=== PATIENT | female | born 1935 | race Caucasian/White ===

== ENCOUNTER 2021-04-09 16:58 | Inpatient (IN) ==
[2021-04-09] MEDS ORDERED: Tdap (Boostrix) Vaccine 0.5 ML SYRINGE IM ONE (18:07)
[2021-04-09] MEDS ORDERED: Isovue-370 500 ML BOTTLE IVP ONE (18:07)
[2021-04-09 19:57] LABS: Basophils % 0.1 %; Hemoglobin 9.7 g/dL (11.5-15.4); Immature Granulocytes % 0.4 % (0-4); Lymphocytes # 0.8 K/mcL (0.6-4.6); Lymphocytes % 5.9 %; Mean Corpuscular HGB Conc 29.4 g/dL (31.6-35.5); Mean Corpuscular Hemoglobin 24.1 pg (28.0-33.3); Mean Corpuscular Volume 81.9 fL (83.0-100.0); Mean Platelet Volume 11.4 fL (9.4-12.4); Monocytes % 7.5 %; Neutrophils # 11.7 K/mcL (1.6-8.9); Platelet Count 391 K/mcL (140-400); Red Blood Count 4.03 M/mcL (3.82-4.97); Red Cell Distribution Width 19.5 % (11.5-14.5); Segmented Neutrophils % 86.1 %; White Blood Count 13.5 K/mcL (4.3-11.1)
[2021-04-09 20:15] LABS: Albumin 4.3 g/dL (3.5-5.7); Albumin/Globulin Ratio 1.5 (1.1-2.2); Bilirubin,Total 0.5 mg/dL (0.3-1.0); Calcium 9.3 mg/dL (8.6-10.3); Globulin 2.8 g/dL (2.4-3.5); Potassium 6.1 mEq/L (3.5-5.1); Total Protein 7.1 g/dL (6.4-8.9); Troponin I 0.09 ng/mL (< 0.04)
[2021-04-09] MEDS ORDERED: Albuterol 2.5 MG/3 ML NEBULIZER IH ONE (20:22)
[2021-04-09] MEDS ORDERED: SODIUM ZIRCONIUM CYCLOSILICATE 5 GM POWD.PACK PO ONE (20:23)
[2021-04-09 20:34] LABS: Bacteria,Urine Moderate per hpf (None-Few); Bilirubin,Urine Negative (Negative); Blood,Urine Negative (Negative); Clarity,Urine Clear (Clear); Color,Urine Light-Yellow (Yellow); Glucose,Urine (UA) Normal (Normal); Hyaline Casts,Urine Few per lpf (None Seen); Ketones,Urine 10 mg/dL (Negative); Leukocyte Esterase,Urine Trace (Negative); Mucus,Urine Few per lpf (None-Few); Nitrite,Urine Negative (Negative); Protein,Urine Negative (Neg-Trace); RBC,Urine 0-3 per hpf (0-3); Specific Gravity,Urine 1.013 (1.010-1.025); Urobilinogen,Urine Normal (Normal); WBC,Urine 0-3 per hpf (0-3)
[2021-04-09] MEDS: Calcium Gluconate 1gm/50mL 1 GM/50 ML BAG IVPB SCH ×2 (20:47→22:25)
[2021-04-09 20:48] LABS: Prothrombin Time 11.3 Seconds (9.4-12.1)
[2021-04-09 20:51] LABS: Activated Partial Thrombo Time 21.4 Seconds (26.0-36.0)
[2021-04-09] MEDS: Miconazole 2% ointment 141 APPL/141 GM TUBE TP SCH (22:25)
[2021-04-10] MEDS ORDERED: Ondansetron 4 MG/2 ML VIAL IVP PRN (00:38)
[2021-04-10] MEDS ORDERED: Naloxone 0.4 MG/ML INJ IVP PRN (00:38)
[2021-04-10] MEDS ORDERED: Acetaminophen 325 MG TABLET PO PRN (00:38)
[2021-04-10 04:25] LABS: Calcium 9.6 mg/dL (8.6-10.3); Potassium 5.6 mEq/L (3.5-5.1)
[2021-04-10] MEDS ORDERED: *HR* Heparin 5,000 UNIT/ML VIAL IVP PRN ×2 (05:25)
[2021-04-10] MEDS ORDERED: *HR* Heparin 5,000 UNIT/ML VIAL IVP ONE (05:25)
[2021-04-10] MEDS ORDERED: Perflutren Lipid Microsphere 1.3 ML in 0.9 % Sodium Chloride 8.7 ML IVP PRN (05:26)
[2021-04-10] MEDS ORDERED: Heparin 25,000 UNIT/250 ML 25,000 UNIT/250 ML IV.SOLN IVC SCH (05:30)
[2021-04-10] MEDS ORDERED: *HR* Dextrose 50 % in Water (Syg) 50 ML SYRINGE IVP PRN (05:31)
[2021-04-10] MEDS ORDERED: D5% in Water 1,000 ML IVC PRN (05:31)
[2021-04-10] MEDS ORDERED: Dextrose Gel 15 GM/37.5 ML TUBE PO PRN ×2 (05:31)
[2021-04-10] MEDS: Insulin LISPRO 300 UNITS/3 ML VIAL SUBQ SCH ×2 (12:24→17:49)
[2021-04-10 12:29] LABS: Basophils % 0.4 %; Eosinophils % 0.4 %; Hemoglobin 8.3 g/dL (11.5-15.4); Immature Granulocytes % 0.4 % (0-4); Lymphocytes % 11.9 %; Mean Corpuscular HGB Conc 29.6 g/dL (31.6-35.5); Mean Corpuscular Volume 80.9 fL (83.0-100.0); Mean Platelet Volume 12.4 fL (9.4-12.4); Monocytes # 0.9 K/mcL (0.0-1.3); Monocytes % 11.1 %; Neutrophils # 6.2 K/mcL (1.6-8.9); Platelet Count 378 K/mcL (140-400); Red Blood Count 3.46 M/mcL (3.82-4.97); Red Cell Distribution Width 19.4 % (11.5-14.5); Segmented Neutrophils % 75.8 %; White Blood Count 8.1 K/mcL (4.3-11.1)
[2021-04-10 12:48] LABS: Calcium 9.3 mg/dL (8.6-10.3); Magnesium 1.3 mg/dL (1.6-2.6); Phosphorous 3.4 mg/dL (2.7-4.5)
[2021-04-10 12:55] LABS: INR 1.1; Prothrombin Time 11.7 Seconds (9.4-12.1)
[2021-04-10 12:56] LABS: Heparin anti-factor XA UFH < 0.04 IU/mL (0.30-0.70)
[2021-04-10 12:57] LABS: Troponin I 0.43 ng/mL (< 0.04)
[2021-04-10] MEDS: Aspirin 81 MG TAB.CHEW PO SCH (17:38)
[2021-04-10 19:07] LABS: Hematocrit 26.6 % (35.3-44.9)
[2021-04-10] MEDS: Melatonin 3 MG TABLET PO PRN (20:38)
[2021-04-10] MEDS: Miconazole 2% ointment 141 APPL/141 GM TUBE TP SCH (20:39)
[2021-04-11] MEDS: Insulin LISPRO 300 UNITS/3 ML VIAL SUBQ SCH ×5 (00:02→23:16)
[2021-04-11] MEDS: Aspirin 81 MG TAB.CHEW PO SCH (09:29)
[2021-04-11 09:31] LABS: Hematocrit 26.9 % (35.3-44.9); Hemoglobin 7.8 g/dL (11.5-15.4); Mean Corpuscular Hemoglobin 23.5 pg (28.0-33.3); Mean Platelet Volume 11.6 fL (9.4-12.4); Platelet Count 339 K/mcL (140-400); Red Blood Count 3.32 M/mcL (3.82-4.97); Red Cell Distribution Width 19.3 % (11.5-14.5); White Blood Count 7.7 K/mcL (4.3-11.1)
[2021-04-11 09:58] LABS: Calcium 9.1 mg/dL (8.6-10.3); Magnesium 1.6 mg/dL (1.6-2.6); Potassium 3.9 mEq/L (3.5-5.1); Troponin I 0.38 ng/mL (< 0.04)
[2021-04-11 15:32] LABS: Hematocrit 25.4 % (35.3-44.9); Hemoglobin 7.4 g/dL (11.5-15.4)
[2021-04-11] MEDS: *HR* Heparin 5,000 UNIT/ML VIAL SQ SCH (17:18)
[2021-04-11] MEDS: Miconazole 2% ointment 141 APPL/141 GM TUBE TP SCH (20:25)
[2021-04-11] MEDS: Melatonin 3 MG TABLET PO PRN (20:25)
[2021-04-11] MEDS: Metoprolol XL (24 HR) Succ 50 MG TAB.ER.24H PO SCH (20:25)
[2021-04-12 03:44] LABS: Hematocrit 24.5 % (35.3-44.9); Hemoglobin 7.4 g/dL (11.5-15.4); Mean Corpuscular HGB Conc 30.2 g/dL (31.6-35.5); Mean Corpuscular Hemoglobin 24.3 pg (28.0-33.3); Mean Corpuscular Volume 80.6 fL (83.0-100.0); Mean Platelet Volume 11.6 fL (9.4-12.4); Platelet Count 314 K/mcL (140-400); Red Blood Count 3.04 M/mcL (3.82-4.97); Red Cell Distribution Width 19.3 % (11.5-14.5); White Blood Count 6.5 K/mcL (4.3-11.1)
[2021-04-12 03:55] LABS: Calcium 8.7 mg/dL (8.6-10.3); Potassium 3.9 mEq/L (3.5-5.1)
[2021-04-12] MEDS: *HR* Heparin 5,000 UNIT/ML VIAL SQ SCH ×2 (05:37→17:32)
[2021-04-12] MEDS: Insulin LISPRO 300 UNITS/3 ML VIAL SUBQ SCH ×4 (05:37→21:07)
[2021-04-12] MEDS: Furosemide Oral Soln 40 MG/4 ML UDC PO SCH (08:07)
[2021-04-12] MEDS: Folic Acid 1 MG TABLET PO SCH (08:07)
[2021-04-12] MEDS: Aspirin 81 MG TAB.CHEW PO SCH (08:07)
[2021-04-12] MEDS: Cyanocobalamin (B-12) 1,000 MCG TABLET PO SCH (08:08)
[2021-04-12] MEDS: Metoprolol XL (24 HR) Succ 50 MG TAB.ER.24H PO SCH ×2 (08:08→21:08)
[2021-04-12 11:16] LABS: Hematocrit 26.7 % (35.3-44.9); Hemoglobin 7.8 g/dL (11.5-15.4)
[2021-04-12 19:30] LABS: Hematocrit 24.9 % (35.3-44.9); Hemoglobin 7.5 g/dL (11.5-15.4)
[2021-04-12] MEDS: Miconazole 2% ointment 141 APPL/141 GM TUBE TP SCH (21:12)
[2021-04-13 02:13] LABS: Hematocrit 24.1 % (35.3-44.9); Hemoglobin 7.1 g/dL (11.5-15.4); Mean Corpuscular HGB Conc 29.5 g/dL (31.6-35.5); Mean Corpuscular Hemoglobin 23.7 pg (28.0-33.3); Mean Corpuscular Volume 80.3 fL (83.0-100.0); Mean Platelet Volume 11.6 fL (9.4-12.4); Platelet Count 317 K/mcL (140-400); Red Cell Distribution Width 19.4 % (11.5-14.5); White Blood Count 7.5 K/mcL (4.3-11.1)
[2021-04-13 02:31] LABS: Calcium 8.5 mg/dL (8.6-10.3); Potassium 3.4 mEq/L (3.5-5.1)
[2021-04-13] MEDS: *HR* Heparin 5,000 UNIT/ML VIAL SQ SCH (05:30)
[2021-04-13] MEDS: Insulin LISPRO 300 UNITS/3 ML VIAL SUBQ SCH ×4 (07:40→20:49)
[2021-04-13] MEDS: Aspirin 81 MG TAB.CHEW PO SCH (08:16)
[2021-04-13] MEDS: Metoprolol XL (24 HR) Succ 50 MG TAB.ER.24H PO SCH ×2 (08:16→20:57)
[2021-04-13] MEDS: Cyanocobalamin (B-12) 1,000 MCG TABLET PO SCH (08:16)
[2021-04-13] MEDS: Furosemide Oral Soln 40 MG/4 ML UDC PO SCH (08:16)
[2021-04-13] MEDS: Folic Acid 1 MG TABLET PO SCH (08:16)
[2021-04-13] MEDS ORDERED: Furosemide 20 MG/2 ML VIAL IVP PRN (14:02)
[2021-04-13 16:47] LABS: Hematocrit 28.6 % (35.3-44.9); Hemoglobin 8.4 g/dL (11.5-15.4); Immature Reticulocyte % 41.3 % (11.0-38.0); Mean Corpuscular HGB Conc 29.4 g/dL (31.6-35.5); Mean Corpuscular Hemoglobin 24.1 pg (28.0-33.3); Mean Corpuscular Volume 81.9 fL (83.0-100.0); Mean Platelet Volume 11.6 fL (9.4-12.4); Platelet Count 387 K/mcL (140-400); Red Blood Count 3.49 M/mcL (3.82-4.97); Red Cell Distribution Width 19.9 % (11.5-14.5); Retculocyte # 0.07 M/mcL (0.05-0.10); Reticulocyte % 2.1 % (1.6-2.8); White Blood Count 7.2 K/mcL (4.3-11.1)
[2021-04-13 17:05] LABS: Iron 24 mcg/dL (50-170); Lactate Dehydrogenase 174 Units/L (140-271)
[2021-04-13 17:22] LABS: Ferritin 18 ng/mL (10-120)
[2021-04-13] MEDS: Pantoprazole 40 MG VIAL IVP SCH (17:33)
[2021-04-13] MEDS: Miconazole 2% ointment 141 APPL/141 GM TUBE TP SCH (20:58)
[2021-04-14 01:13] LABS: Hematocrit 25.3 % (35.3-44.9); Hemoglobin 7.5 g/dL (11.5-15.4); Mean Corpuscular HGB Conc 29.6 g/dL (31.6-35.5); Mean Corpuscular Volume 81.1 fL (83.0-100.0); Mean Platelet Volume 11.7 fL (9.4-12.4); Platelet Count 293 K/mcL (140-400); Red Blood Count 3.12 M/mcL (3.82-4.97); Red Cell Distribution Width 19.6 % (11.5-14.5); White Blood Count 8.2 K/mcL (4.3-11.1)
[2021-04-14 01:37] LABS: Calcium 8.6 mg/dL (8.6-10.3); Potassium 4.2 mEq/L (3.5-5.1)
[2021-04-14] MEDS: Pantoprazole 40 MG VIAL IVP SCH ×2 (05:28→17:34)
[2021-04-14] MEDS: Insulin LISPRO 300 UNITS/3 ML VIAL SUBQ SCH ×4 (08:01→21:35)
[2021-04-14] MEDS: Cyanocobalamin (B-12) 1,000 MCG TABLET PO SCH (08:12)
[2021-04-14] MEDS: Folic Acid 1 MG TABLET PO SCH (08:12)
[2021-04-14] MEDS: Aspirin 81 MG TAB.CHEW PO SCH (08:13)
[2021-04-14] MEDS: Metoprolol XL (24 HR) Succ 50 MG TAB.ER.24H PO SCH ×2 (08:13→21:19)
[2021-04-14] MEDS ORDERED: 0.9 % Sodium Chloride 250 ML ONE (10:24)
[2021-04-14 15:56] LABS: Sodium, Urine 72.7 mEq/L
[2021-04-14 17:12] LABS: Hepatitis B Surface Antigen Nonreactive (Nonreactive)
[2021-04-14 17:40] LABS: Hepatitis B Core IgM Nonreactive (Nonreactive)
[2021-04-14 17:41] LABS: Hepatitis C Virus Antibody Nonreactive (Nonreactive)
[2021-04-14 17:42] LABS: Hepatitis A Antibody IgM Nonreactive (Nonreactive)
[2021-04-14] MEDS: Miconazole 2% ointment 141 APPL/141 GM TUBE TP SCH (21:19)
[2021-04-15] MEDS ORDERED: 0.9 % Sodium Chloride 250 ML ONE (00:50)
[2021-04-15 04:39] LABS: Hematocrit 27.4 % (35.3-44.9); Hemoglobin 8.4 g/dL (11.5-15.4); Mean Corpuscular HGB Conc 30.7 g/dL (31.6-35.5); Mean Corpuscular Hemoglobin 24.3 pg (28.0-33.3); Mean Corpuscular Volume 79.4 fL (83.0-100.0); Mean Platelet Volume 11.6 fL (9.4-12.4); Platelet Count 293 K/mcL (140-400); Red Blood Count 3.45 M/mcL (3.82-4.97); Red Cell Distribution Width 18.6 % (11.5-14.5); White Blood Count 8.7 K/mcL (4.3-11.1)
[2021-04-15 04:46] LABS: Calcium 8.7 mg/dL (8.6-10.3); Potassium 3.8 mEq/L (3.5-5.1)
[2021-04-15] MEDS: Pantoprazole 40 MG VIAL IVP SCH ×2 (05:34→17:41)
[2021-04-15] MEDS: Insulin LISPRO 300 UNITS/3 ML VIAL SUBQ SCH ×3 (08:19→17:40)
[2021-04-15] MEDS: Aspirin 81 MG TAB.CHEW PO SCH (08:20)
[2021-04-15] MEDS: Folic Acid 1 MG TABLET PO SCH (08:20)
[2021-04-15] MEDS: Metoprolol XL (24 HR) Succ 50 MG TAB.ER.24H PO SCH ×2 (08:20→19:52)
[2021-04-15] MEDS: Cyanocobalamin (B-12) 1,000 MCG TABLET PO SCH (08:20)
[2021-04-15] MEDS ORDERED: Furosemide 40 MG TABLET PO SCH (09:00)
[2021-04-15 09:42] LABS: Hematocrit 32.7 % (35.3-44.9); Mean Corpuscular HGB Conc 31.5 g/dL (31.6-35.5); Mean Corpuscular Hemoglobin 24.9 pg (28.0-33.3); Mean Corpuscular Volume 79.2 fL (83.0-100.0); Mean Platelet Volume 11.5 fL (9.4-12.4); Platelet Count 297 K/mcL (140-400); Red Blood Count 4.13 M/mcL (3.82-4.97); Red Cell Distribution Width 18.1 % (11.5-14.5); White Blood Count 9.1 K/mcL (4.3-11.1)
[2021-04-15 09:48] LABS: Hemoglobin 10.3 g/dL (11.5-15.4)
[2021-04-15] MEDS ORDERED: *HR* Metoprolol 5 MG/5 ML VIAL IVP PRN (15:42)
[2021-04-15] MEDS ORDERED: *HR* Digoxin 0.5 MG/2 ML AMPUL IVP STA (17:53)
[2021-04-15 18:05] LABS: Hematocrit 35.2 % (35.3-44.9); Hemoglobin 10.6 g/dL (11.5-15.4); Mean Corpuscular HGB Conc 30.1 g/dL (31.6-35.5); Mean Corpuscular Hemoglobin 24.8 pg (28.0-33.3); Mean Corpuscular Volume 82.4 fL (83.0-100.0); Mean Platelet Volume 11.5 fL (9.4-12.4); Platelet Count 333 K/mcL (140-400); Red Blood Count 4.27 M/mcL (3.82-4.97); Red Cell Distribution Width 18.6 % (11.5-14.5); White Blood Count 10.3 K/mcL (4.3-11.1)
[2021-04-15 18:20] LABS: Magnesium 1.3 mg/dL (1.6-2.6)
[2021-04-15] MEDS: Miconazole 2% ointment 141 APPL/141 GM TUBE TP SCH (19:52)
[2021-04-15 23:24] LABS: Thyroid Stimulating Hormone 4.3 mcIU/mL (0.340-5.600)
[2021-04-16 04:14] LABS: Hematocrit 31.6 % (35.3-44.9); Mean Corpuscular HGB Conc 31.6 g/dL (31.6-35.5); Mean Corpuscular Volume 82.1 fL (83.0-100.0); Mean Platelet Volume 11.5 fL (9.4-12.4); Platelet Count 301 K/mcL (140-400); Red Blood Count 3.85 M/mcL (3.82-4.97); White Blood Count 8.6 K/mcL (4.3-11.1)
[2021-04-16 04:27] LABS: Calcium 8.9 mg/dL (8.6-10.3); Digoxin 1.4 ng/mL (0.8-2.0); Potassium 3.6 mEq/L (3.5-5.1)
[2021-04-16] MEDS: Pantoprazole 40 MG VIAL IVP SCH ×2 (05:50→19:19)
[2021-04-16] MEDS ORDERED: *HR* Digoxin 0.5 MG/2 ML AMPUL IVP STA (07:45)
[2021-04-16] MEDS ORDERED: *HR* Dextrose 50 % in Water (Syg) 50 ML SYRINGE IVP PRN (07:45)
[2021-04-16] MEDS ORDERED: Dextrose Gel 15 GM/37.5 ML TUBE PO PRN ×2 (07:45)
[2021-04-16] MEDS ORDERED: Furosemide 20 MG/2 ML VIAL IVP PRN (07:45)
[2021-04-16] MEDS ORDERED: *HR* Metoprolol 5 MG/5 ML VIAL IVP PRN (07:45)
[2021-04-16] MEDS ORDERED: *HR* Digoxin 0.5 MG/2 ML AMPUL IVP SCH (07:45)
[2021-04-16] MEDS ORDERED: Melatonin 3 MG TABLET PO PRN (07:45)
[2021-04-16] MEDS ORDERED: D5% in Water 1,000 ML IVC PRN (07:45)
[2021-04-16] MEDS ORDERED: Ondansetron 4 MG/2 ML VIAL IVP PRN (07:45)
[2021-04-16] MEDS ORDERED: Naloxone 0.4 MG/ML INJ IVP PRN (07:45)
[2021-04-16] MEDS: Aspirin 81 MG TAB.CHEW PO SCH (08:42)
[2021-04-16] MEDS: Folic Acid 1 MG TABLET PO SCH (08:42)
[2021-04-16] MEDS: Cyanocobalamin (B-12) 1,000 MCG TABLET PO SCH (08:44)
[2021-04-16] MEDS: Metoprolol XL (24 HR) Succ 50 MG TAB.ER.24H PO SCH ×2 (08:46→22:08)
[2021-04-16] MEDS ORDERED: Furosemide 40 MG TABLET PO SCH (09:00)
[2021-04-16] MEDS ORDERED: Sennosides/Docusate Sodium TABLET PO PRN (11:50)
[2021-04-16] MEDS: Insulin LISPRO 300 UNITS/3 ML VIAL SUBQ SCH ×2 (13:00→19:19)
[2021-04-16 13:12] LABS: Hematocrit 35.8 % (35.3-44.9); Hemoglobin 10.9 g/dL (11.5-15.4); Mean Corpuscular HGB Conc 30.4 g/dL (31.6-35.5); Mean Corpuscular Hemoglobin 25.3 pg (28.0-33.3); Mean Corpuscular Volume 83.1 fL (83.0-100.0); Mean Platelet Volume 11.4 fL (9.4-12.4); Platelet Count 312 K/mcL (140-400); Red Blood Count 4.31 M/mcL (3.82-4.97); Red Cell Distribution Width 19.2 % (11.5-14.5); White Blood Count 9.6 K/mcL (4.3-11.1)
[2021-04-16 13:14] LABS: Heparin anti-factor XA UFH < 0.04 IU/mL (0.30-0.70)
[2021-04-16 13:15] LABS: Prothrombin Time 11.1 Seconds (9.4-12.1)
[2021-04-16] MEDS: Heparin 25,000 UNIT/250 ML 25,000 UNIT/250 ML IV.SOLN IVC SCH (15:20)
[2021-04-16] MEDS: Miconazole 2% ointment 141 APPL/141 GM TUBE TP SCH (22:08)
[2021-04-16] MEDS: Acetaminophen 325 MG TABLET PO PRN (23:09)
[2021-04-16] MEDS ORDERED: *HR* Heparin 5,000 UNIT/ML VIAL IVP PRN (23:32)
[2021-04-16] MEDS: *HR* Heparin 5,000 UNIT/ML VIAL IVP PRN (23:57)
[2021-04-17 05:07] LABS: Hematocrit 33.6 % (35.3-44.9); Hemoglobin 10.2 g/dL (11.5-15.4); Mean Corpuscular HGB Conc 30.4 g/dL (31.6-35.5); Mean Corpuscular Volume 82.4 fL (83.0-100.0); Mean Platelet Volume 11.3 fL (9.4-12.4); Platelet Count 317 K/mcL (140-400); Red Blood Count 4.08 M/mcL (3.82-4.97); Red Cell Distribution Width 19.1 % (11.5-14.5); White Blood Count 9.4 K/mcL (4.3-11.1)
[2021-04-17 05:39] LABS: Calcium 8.6 mg/dL (8.6-10.3); Potassium 3.4 mEq/L (3.5-5.1)
[2021-04-17] MEDS: Pantoprazole 40 MG VIAL IVP SCH ×2 (06:20→18:46)
[2021-04-17] MEDS ORDERED: Magnesium Sulfate 1 GM/102 ML PIGGYBACK IVPB ONE (08:15)
[2021-04-17] MEDS: Aspirin 81 MG TAB.CHEW PO SCH (10:00)
[2021-04-17] MEDS: *HR* Heparin 5,000 UNIT/ML VIAL IVP PRN ×2 (10:00→20:01)
[2021-04-17] MEDS: Cyanocobalamin (B-12) 1,000 MCG TABLET PO SCH (10:01)
[2021-04-17] MEDS: Folic Acid 1 MG TABLET PO SCH (10:01)
[2021-04-17] MEDS: Metoprolol XL (24 HR) Succ 50 MG TAB.ER.24H PO SCH ×2 (10:01→20:00)
[2021-04-17] MEDS: Insulin LISPRO 300 UNITS/3 ML VIAL SUBQ SCH ×3 (10:21→18:46)
[2021-04-17] MEDS: Potassium Chloride Elixir 20 MEQ/15 ML UDC PO SCH ×2 (10:32→19:59)
[2021-04-17] MEDS: Heparin 25,000 UNIT/250 ML 25,000 UNIT/250 ML IV.SOLN IVC SCH (18:14)
[2021-04-17] MEDS: Miconazole 2% ointment 141 APPL/141 GM TUBE TP SCH (20:00)
[2021-04-17] MEDS: Acetaminophen 325 MG TABLET PO PRN (20:00)
[2021-04-18 02:43] LABS: Hemoglobin 9.3 g/dL (11.5-15.4); Mean Corpuscular Hemoglobin 25.2 pg (28.0-33.3); Mean Platelet Volume 11.9 fL (9.4-12.4); Platelet Count 316 K/mcL (140-400); Red Blood Count 3.69 M/mcL (3.82-4.97); Red Cell Distribution Width 19.3 % (11.5-14.5); White Blood Count 8.1 K/mcL (4.3-11.1)
[2021-04-18 02:47] LABS: Calcium 8.6 mg/dL (8.6-10.3); Magnesium 1.9 mg/dL (1.6-2.6); Phosphorous 2.6 mg/dL (2.7-4.5); Potassium 4.3 mEq/L (3.5-5.1)
[2021-04-18 03:01] LABS: Prothrombin Time 11.5 Seconds (9.4-12.1)
[2021-04-18 03:17] LABS: Activated Partial Thrombo Time 107.8 Seconds (26.0-36.0)
[2021-04-18 04:20] LABS: Lambda Qnt Free Light Chains 36.23 mg/L (5.71-26.30)
[2021-04-18] MEDS: Pantoprazole 40 MG VIAL IVP SCH ×2 (06:44→16:19)
[2021-04-18] MEDS: Insulin LISPRO 300 UNITS/3 ML VIAL SUBQ SCH ×3 (09:42→16:20)
[2021-04-18] MEDS: Cyanocobalamin (B-12) 1,000 MCG TABLET PO SCH (09:50)
[2021-04-18] MEDS: Aspirin 81 MG TAB.CHEW PO SCH (09:50)
[2021-04-18] MEDS: Folic Acid 1 MG TABLET PO SCH (09:50)
[2021-04-18] MEDS: Metoprolol XL (24 HR) Succ 50 MG TAB.ER.24H PO SCH ×2 (09:50→20:37)
[2021-04-18] MEDS: Heparin 25,000 UNIT/250 ML 25,000 UNIT/250 ML IV.SOLN IVC SCH (12:00)
[2021-04-18 13:32] LABS: Kappa Qnt Free Light Chains 37.32 mg/L (3.30-19.40)
[2021-04-18] MEDS: Acetaminophen 325 MG TABLET PO PRN (20:37)
[2021-04-18] MEDS: *HR* Heparin 5,000 UNIT/ML VIAL IVP PRN (20:37)
[2021-04-18] MEDS: Miconazole 2% ointment 141 APPL/141 GM TUBE TP SCH (21:21)
[2021-04-19] MEDS: Pantoprazole 40 MG VIAL IVP SCH (05:33)
[2021-04-19] MEDS: Acetaminophen 325 MG TABLET PO PRN (05:41)
[2021-04-19 06:13] LABS: Hematocrit 32.3 % (35.3-44.9); Hemoglobin 9.7 g/dL (11.5-15.4); Mean Corpuscular Hemoglobin 25.6 pg (28.0-33.3); Mean Corpuscular Volume 85.2 fL (83.0-100.0); Mean Platelet Volume 11.5 fL (9.4-12.4); Platelet Count 331 K/mcL (140-400); Red Blood Count 3.79 M/mcL (3.82-4.97); Red Cell Distribution Width 19.7 % (11.5-14.5); White Blood Count 7.7 K/mcL (4.3-11.1)
[2021-04-19 06:19] LABS: Calcium 8.9 mg/dL (8.6-10.3); Potassium 3.8 mEq/L (3.5-5.1)
[2021-04-19] MEDS: Metoprolol XL (24 HR) Succ 50 MG TAB.ER.24H PO SCH (07:45)
[2021-04-19] MEDS: Aspirin 81 MG TAB.CHEW PO SCH (07:45)
[2021-04-19] MEDS: Cyanocobalamin (B-12) 1,000 MCG TABLET PO SCH (07:45)
[2021-04-19] MEDS: Insulin LISPRO 300 UNITS/3 ML VIAL SUBQ SCH ×2 (07:45→13:03)
[2021-04-19] MEDS: Folic Acid 1 MG TABLET PO SCH (07:45)
[2021-04-19] MEDS ORDERED: Apixaban 5 MG TABLET PO SCH (09:00)
[2021-04-19 11:22] VITALS: BP 125/72; PULSE 77; TEMP 97.7; O2SAT 98
[2021-04-19 22:36] LABS: Alpha 2 Globulin (PEP) 1.07 g/dL (0.48-1.05)
[2021-04-20 07:11] LABS: IFE Reflexed NOT DONE
[2021-04-21 11:52] LABS: % Iron Saturation 6 % (15-50); Transferrin 280 mg/dL (200-400)
== END 2021-04-19 13:54 | disposition home health service (06) | DRG 281 ==
LOC: EMEROOARM 16:58 → 3ANU 16:58 → SUATTDRO 04-10 08:36 → 2NNU 04-15 21:04 → 2ANU 04-18 08:28
PROVIDERS: ADMIT Family Medicine; ATTEND Internal Medicine